=== PATIENT | male | born 1935 | race Caucasian/White ===

== ENCOUNTER 2016-05-27 07:00 | Inpatient (IN) | payer MEDICARE, OTHER ==
[~2016-05-27] VITALS: Ht 195.6 cm; Wt 69.4 kg
[~2016-05-27 07:00] MED LIST: ATORVASTATIN CA10 MG PO; CEPHALEXIN500 MG PO; FERROUS SULFAT325 M1 PO; FLOMAX0.4 MG PO; LOVENOX SUBQ; LOVENOX10 M1 SUBQ; NIACIN100 MG PO; NORCO 10-325 T1 EACH PO
[2016-06-03] MEDS ORDERED: FOSAMAX70 MG ORAL (16:24)
[2016-06-03] MEDS ORDERED: METOPROLOL TART25 MG ORAL (16:24)
[2016-06-03] MEDS ORDERED: XARELTO10 MG ORAL (16:24)
[2016-06-03] MEDS ORDERED: PREDNISONE10 MG ORAL (16:24)
[2016-06-04] VITALS (12 sets, daily range): BP systolic 103–138; BP diastolic 49–77
[2016-06-04] MEDS ORDERED: Bacitracin 50000 Units Vial ONE (10:28)
[2016-06-04] MEDS ORDERED: Morphine Sulfate PF 10 ML ONE (10:31)
[2016-06-04] MEDS ORDERED: Ropivacaine 5mg/ml Vial 20ml INJ ONE (10:31)
[2016-06-04] MEDS ORDERED: Bupivacaine 0.5% Inj 30 ml vial INJ ONE (10:31)
--- NOTE | 2016-06-04 11:03 | Anethesia Preoperative Eval ---
Anesthesia Pre-op PMH/ROS General Date of Evaluation: Jun 04, 2016 Anesthesiologist: Nica ASA Score: ASA 3 Mallampati Score Class I : Soft palate, uvula, fauces, pillars visible Class II: Soft palate, uvula, fauces visible Class III: Soft palate, base of uvula visible Class IV: Only hard plate visible Mallampati Classification: Class II Surgeon: Dee Dee Diagnosis: L Knee Pain Surgical Procedure: L TKR Family History: no anesthesia problems Allergies: Coded Allergies: VANCOMYCIN (Verified Allergy, Mild, 06/04/16) AJAY REACTION Medications: see eMAR Past Medical History Cardiovascular: Reports: HTN, arrhythmia - AFib, other - HL Gastrointestinal/Genitourinary: Reports: other - Prostate CA HEENT: Reports: cataract (L), cataract (R) Hematology/Immune: Reports: DVT, anemia Musculoskeletal/Integumentary: Reports: other - Polymyalgia Rheumatica PSxH Narrative: L IH, R TKR, Fredis Cat ext with IOL Anesthesia Pre-op Phys. Exam Physician Exam Last Vital Signs Date Time Temp Pulse Resp B/P Pulse Ox O2 Delivery O2 Flow Rate FiO2 06/04/16 10:19 98.5 80 16 138/77 99 Room Air Constitutional: NAD Neurologic: CN 2-12 intact Cardiovascular: RRR Respiratory: CTA Gastrointestinal: S/NT/ND Airway Exam Mallampati Score: Class II MO: limited ROM: limited Teeth: intact Anesthesia Pre-op A/P Risk Assessment & Plan Assessment: ASA 3 Pre-Antibiotics Dru Grams Ancef IV Given Within 1 Hr of Incision: Yes Time Given: 11:51 Zach Yousif MD Jun 04, 2016 11:03
[2016-06-04] MEDS ORDERED: NS Irrig 1000ml IRRIG ONE (11:15)
[2016-06-04] MEDS ORDERED: NS Irrig 2000ml IRRIG ONE (11:15)
--- NOTE | 2016-06-04 11:19 | Pre-Procedure Note/Attestation ---
Pre-Procedure Note/Attestation Complete Prior to Procedure Planned Procedure: left Procedure Narrative: left knee replacement Indications for Procedure Pre-Operative Diagnosis: left knee OA Attestation I attest that I discussed the nature of the procedure; its benefits; risks and complications; and alternatives (and the risks and benefits of such alternatives ), prior to the procedure, with the patient (or the patient's legal telephone services sales representative). I attest that, if there was a reasonable possibility of needing a blood transfusion, the patient (or the patient's legal telephone services sales representative) was given the [facility] standardized written summary, pursuant to the [place] Blood Safety Act ([place] Health and Safety Code # 1645, as amended). I attest that I re-evaluated the patient just prior to the surgery and that there has been no change in the patient's H&P, except as documented below: KELLI LEMONS Jun 04, 2016 11:19
--- NOTE | 2016-06-04 11:20 | Brief Operative Note ---
Immediate Post Operative Note Operative Note Pre-op Diagnosis: left knee OA Procedure: left knee replacement Post-op Diagnosis: left knee oa Post-op Diagnosis: same as pre-op Surgeon: jorge Anesthesia: general Complications: yes Condition: stable Implant(s) used?: Yes KELLI LEMONS Jun 04, 2016 11:20
[2016-06-04] MEDS ORDERED: Norco 7.5mg/325mg tab ORAL PRN (11:30)
[2016-06-04] MEDS ORDERED: Morphine Sulfate 2mg/ml Inj IVP PRN (11:30)
--- NOTE | 2016-06-04 11:45 | General Progress Note ---
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) Dx of Polymyalgia rheumatica (ICD-725) Dx of Knee pain, left (ICD-719.46) Plan post operative care post operative care resume Xarelto in am resume home meds follow up clinically Subjective Allergies: Coded Allergies: VANCOMYCIN (Verified Allergy, Mild, 06/04/16) AJAY REACTION Subjective asked to follow up on post operative care and management Objective Last 24 Hour Vital Signs Date Time Temp Pulse Resp B/P Pulse Ox O2 Delivery O2 Flow Rate FiO2 06/04/16 10:19 98.5 80 16 138/77 99 Room Air Height (Feet): 6 Height (Inches): 5.00 Weight (Pounds): 153 Objective WDWN NAD clear breath sounds bilaterally without rhonchi or wheeze S1S2 iRRR without MRG NABS nontender no HSM no CCE nonfocal JOHNATHON RAMIREZ Jun 04, 2016 11:45
[2016-06-04] MEDS ORDERED: TOBRAMYCIN 1.2 GM TOPIC ONE (12:45)
[2016-06-04] MEDS ORDERED: Propofol 10mg/ml 20ml IV ONE (12:59)
--- NOTE | 2016-06-04 13:42 | Immediate Post-Op Evaluation ---
Immediate Post-Op Evalulation Immediate Post-Op Evalulation Procedure: L TKR Date of Evaluation: Jun 04, 2016 Time of Evaluation: 14:02 IV Fluids: 1200 LR Blood Products: 0 Estimated Blood Loss: 50 Urinary Output: 100 Blood Pressure Systolic: 104 Blood Pressure Diastolic: 49 Pulse Rate: 62 Respiratory Rate: 16 O2 Sat by Pulse Oximetry: 100 Pain Score (1-10): 0 Nausea: No Vomiting: No Complications 0 Patient Status: awake, reacts, patent, none Hydration Status: adequate Dru Grams Ancef IV Given Within 1 Hr of Incision: Yes Time Given: 11:51 Zach Yousif MD Jun 04, 2016 13:42
--- NOTE | 2016-06-04 13:52 | 48 Hour Post Anesthesia Eval ---
Post Anesthesia Evaluation Procedure: L TKR Date of Evaluation: Jun 04, 2016 Time of Evaluation: 16:13 Blood Pressure Systolic: 133 0: 67 Pulse Rate: 67 Respiratory Rate: 16 Temperature (Fahrenheit): 97 O2 Sat by Pulse Oximetry: 99 Airway: patent Nausea: No Vomiting: No Pain Intensity: 0 Hydration Status: adequate Cardiopulmonary Status: Stable Mental Status/LOC: patient returned to baseline Follow-up Care/Observations: 0 Post-Anesthesia Complications: 0 Follow-up care needed: N/A Zach Yousif MD Jun 04, 2016 13:52
[2016-06-04 14:49] LABS: MEAN CORPUSCULAR HEMOGLOBIN 36.9 PG (27.0-31.0); MEAN CORPUSCULAR VOLUME 112 FL (80-99); MEAN PLATELET VOLUME 5.1 FL (6.5-10.1); PLATELET COUNT 265 K/UL (150-450); RED BLOOD COUNT 2.28 M/UL (4.70-6.10); RED CELL DISTRIBUTION WIDTH 12.2 % (11.6-14.8); WHITE BLOOD COUNT 13.8 K/UL (4.8-10.8)
[2016-06-04 14:59] LABS: INR 1.1 (0.9-1.1); PROTHROMBIN TIME 10.8 SEC (9.30-11.50)
--- NOTE | 2016-06-04 16:30 | Diagnostic Imaging Report ---
Indications: Postoperative Technique: Two views of the left knee Comparison:None Findings: Two postoperative views of the left knee demonstrate total knee arthroplasty, good anatomic alignment of the prosthesis. There is an external brace. There is postsurgical soft tissue air. Overlying skin chacha. Impression: Postoperative left knee, no unusual features.
[2016-06-04 17:57] LABS: ANISOCYTOSIS 1+; BAND NEUTROPHILS % (MANUAL) 0 % (0-8); BASOPHILS % (MANUAL) 0 % (0-2); EOSINOPHILS % (MANUAL) 0 % (0-3); LYMPHOCYTES % (MANUAL) 1 % (20-45); NEUTROPHILS % (MANUAL) 99 % (45-75); PLATELET ESTIMATE ADEQUATE; POLYCHROMASIA 1+; TOTAL CELLS COUNTED 100
[2016-06-04 17:58] LABS: MACROCYTES 2+; PLATELET MORPHOLOGY NORMAL
[2016-06-04] MEDS: D5 1/2NS w/KCl 20mEq 1,000 ML IV SCH (19:22)
[2016-06-04] MEDS ORDERED: Xarelto 10mg tab ORAL SCH (21:00)
[2016-06-05] VITALS: BP 110/56
[2016-06-05] MEDS: D5 1/2NS w/KCl 20mEq 1,000 ML IV SCH ×2 (03:30→06:00)
[2016-06-05 04:00] VITALS: BP 98/53
[2016-06-05 08:09] LABS: MEAN CORPUSCULAR HEMOGLOBIN 39.8 PG (27.0-31.0); MEAN CORPUSCULAR HGB CONC 34.1 G/DL (32.0-36.0); MEAN CORPUSCULAR VOLUME 117 FL (80-99); MEAN PLATELET VOLUME 6.3 FL (6.5-10.1); PLATELET COUNT 220 K/UL (150-450); RED BLOOD COUNT 2.02 M/UL (4.70-6.10); RED CELL DISTRIBUTION WIDTH 11.9 % (11.6-14.8)
[2016-06-05 08:18] LABS: INR 1.1 (0.9-1.1); PROTHROMBIN TIME 11.3 SEC (9.30-11.50)
[2016-06-05 08:34] VITALS: BP 110/68
[2016-06-05] MEDS: PredniSONE 5mg tab ORAL SCH (08:40)
[2016-06-05] MEDS: Morphine Sulfate 4mg/ml Inj IVP PRN ×3 (08:42→21:33)
[2016-06-05] MEDS ORDERED: Xarelto 10mg tab ORAL SCH ×2 (09:00→16:30)
[2016-06-05] MEDS ORDERED: Enoxaparin 40mg Inj SUBQ SCH (09:00)
[2016-06-05 10:29] LABS: BAND NEUTROPHILS % (MANUAL) 0 % (0-8); BASOPHILS % (MANUAL) 0 % (0-2); EOSINOPHILS % (MANUAL) 0 % (0-3); HYPOCHROMASIA 1+; LYMPHOCYTES % (MANUAL) 4 % (20-45); MACROCYTES 1+; NEUTROPHILS % (MANUAL) 90 % (45-75); PLATELET ESTIMATE ADEQUATE; PLATELET MORPHOLOGY NORMAL; TOTAL CELLS COUNTED 100
[2016-06-05 12:00] VITALS: BP 103/53
[2016-06-05 16:00] VITALS: BP 110/53
--- NOTE | 2016-06-05 17:10 | General Progress Note ---
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) Dx of Polymyalgia rheumatica (ICD-725) Dx of Knee pain, left (ICD-719.46) Dx of Leukocytosis Plan post operative care post operative care resume Xarelto in am resume home meds recheck CBC in am follow up clinically Subjective Allergies: Coded Allergies: VANCOMYCIN (Verified Allergy, Mild, 06/04/16) AJAY REACTION Subjective leukocytosis noted nontoxic Objective Last 24 Hour Vital Signs Date Time Temp Pulse Resp B/P Pulse Ox O2 Delivery O2 Flow Rate FiO2 06/05/16 16:00 98.2 71 18 110/53 94 Room Air 06/05/16 15:07 97.0 06/05/16 12:00 97.0 66 20 103/53 95 Nasal Cannula 3.0 06/05/16 08:40 78 110/68 06/05/16 08:34 97.0 78 20 110/68 95 Nasal Cannula 3.0 06/05/16 08:00 72 06/05/16 04:00 97.0 62 20 98/53 99 06/05/16 04:00 58 06/05/16 00:00 98.0 66 20 110/56 97 Room Air 06/05/16 00:00 62 06/04/16 20:00 97.2 63 18 103/57 Nasal Cannula 2.0 99 06/04/16 19:56 72 Intake and Output 06/04/16 06/05/16 19:00 07:00 Intake Total 1400 ml 1150 ml Output Total 300 ml 700 ml Balance 1100 ml 450 ml IV Total 1400 ml 1150 ml Output Urine Total 250 ml 700 ml Estimated Blood Loss 50 ml # Bowel Movements 1 Laboratory Tests 06/05/16 06:50: White Blood Count 19.0H, Red Blood Count 2.02L, Hemoglobin 8.0L, Hematocrit 23.6L, Mean Corpuscular Volume 117H, Mean Corpuscular Hemoglobin 39.8H, Mean Corpuscular Hemoglobin Concent 34.1, Red Cell Distribution Width 11.9, Platelet Count 220, Mean Platelet Volume 6.3L, Neutrophils (%) (Auto) , Lymphocytes (%) ( Auto) , Monocytes (%) (Auto) , Eosinophils (%) (Auto) , Basophils (%) (Auto) , Differential Total Cells Counted 100, Neutrophils % (Manual) 90H, Lymphocytes % (Manual) 4L, Monocytes % (Manual) 6, Eosinophils % (Manual) 0, Basophils % ( Manual) 0, Band Neutrophils 0, Platelet Estimate Adequate, Platelet Morphology Normal, Hypochromasia 1+, Macrocytosis 1+, Prothrombin Time 11.3, Prothromb Time International Ratio 1.1 Height (Feet): 6 Height (Inches): 5.00 Weight (Pounds): 153 Objective WDWN NAD clear breath sounds bilaterally without rhonchi or wheeze S1S2 iRRR without MRG NABS nontender no HSM no CCE; reduced ROM nonfocal JOHNATHON RAMIREZ Jun 05, 2016 17:10
[2016-06-05] MEDS: Morphine Sulfate 2mg/ml Inj IVP PRN (19:29)
[2016-06-05 20:00] VITALS: BP 107/45
[2016-06-06] MEDS: D5 1/2NS w/KCl 20mEq 1,000 ML IV SCH ×3 (00:01→19:16)
[2016-06-06 00:40] VITALS: BP 119/69
[2016-06-06 04:00] VITALS: BP 112/70
[2016-06-06 06:53] LABS: MEAN CORPUSCULAR HEMOGLOBIN 38.6 PG (27.0-31.0); MEAN CORPUSCULAR HGB CONC 33.6 G/DL (32.0-36.0); MEAN CORPUSCULAR VOLUME 115 FL (80-99); MEAN PLATELET VOLUME 5.8 FL (6.5-10.1); PLATELET COUNT 226 K/UL (150-450); RED BLOOD COUNT 2.24 M/UL (4.70-6.10); RED CELL DISTRIBUTION WIDTH 11.8 % (11.6-14.8); WHITE BLOOD COUNT 21.6 K/UL (4.8-10.8)
[2016-06-06 07:18] LABS: INR 1.1 (0.9-1.1); PROTHROMBIN TIME 11.2 SEC (9.30-11.50)
--- NOTE | 2016-06-06 08:27 | General Progress Note ---
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 prednisone related Plan post operative care post operative care resume Xarelto in am resume home meds recheck CBC in am obtain cultures and chest XR ID evaluation follow up clinically Subjective Allergies: Coded Allergies: VANCOMYCIN (Verified Allergy, Mild, 06/04/16) AJAY REACTION Subjective leukocytosis noted- worse nontoxic appearing Objective Last 24 Hour Vital Signs Date Time Temp Pulse Resp B/P Pulse Ox O2 Delivery O2 Flow Rate FiO2 06/06/16 04:00 98.0 70 20 112/70 70 Room Air 06/06/16 04:00 78 06/06/16 00:40 98.0 69 20 119/69 100 Room Air 06/06/16 00:00 72 06/05/16 20:00 96.8 66 18 107/45 99 Room Air 06/05/16 20:00 74 06/05/16 16:00 98.2 71 18 110/53 94 Room Air 06/05/16 16:00 70 06/05/16 15:07 97.0 06/05/16 12:00 97.0 66 20 103/53 95 Nasal Cannula 3.0 06/05/16 08:40 78 110/68 06/05/16 08:34 97.0 78 20 110/68 95 Nasal Cannula 3.0 Intake and Output 06/05/16 06/06/16 19:00 07:00 Intake Total 1140 ml 550 ml Output Total 300 ml 1600 ml Balance 840 ml -1050 ml Intake Oral 240 ml IV Total 900 ml 550 ml Output Urine Total 300 ml 1600 ml Laboratory Tests 06/06/16 06:10: White Blood Count 21.6H, Red Blood Count 2.24L, Hemoglobin 8.6L, Hematocrit 25.8L, Mean Corpuscular Volume 115H, Mean Corpuscular Hemoglobin 38.6H, Mean Corpuscular Hemoglobin Concent 33.6, Red Cell Distribution Width 11.8, Platelet Count 226, Mean Platelet Volume 5.8L, Neutrophils (%) (Auto) , Lymphocytes (%) ( Auto) , Monocytes (%) (Auto) , Eosinophils (%) (Auto) , Basophils (%) (Auto) , Neutrophils % (Manual) [Pending], Lymphocytes % (Manual) [Pending], Platelet Estimate [Pending], Platelet Morphology [Pending], Prothrombin Time 11.2, Prothromb Time International Ratio 1.1 Height (Feet): 6 Height (Inches): 5.00 Weight (Pounds): 153 Objective WDWN NAD clear breath sounds bilaterally without rhonchi or wheeze S1S2 iRRR without MRG NABS nontender no HSM no CCE; reduced ROM nonfocal JOHNATHON RAMIREZ Jun 06, 2016 08:27
[2016-06-06 08:46] VITALS: BP 126/64
[2016-06-06] MEDS: PredniSONE 5mg tab ORAL SCH (10:02)
[2016-06-06] MEDS: Morphine Sulfate 2mg/ml Inj IVP PRN (10:04)
[2016-06-06 12:00] VITALS: BP 124/56
[2016-06-06] MEDS ORDERED: CEFTAROLINE IVPB SCH (12:00)
[2016-06-06] MEDS ORDERED: NS IVPB SCH (12:00)
[2016-06-06 12:12] LABS: BAND NEUTROPHILS % (MANUAL) 0 % (0-8); BASOPHILS % (MANUAL) 0 % (0-2); EOSINOPHILS % (MANUAL) 1 % (0-3); LYMPHOCYTES % (MANUAL) 12 % (20-45); NEUTROPHILS % (MANUAL) 86 % (45-75); PLATELET ESTIMATE ADEQUATE; PLATELET MORPHOLOGY NORMAL; TOTAL CELLS COUNTED 100
[2016-06-06 12:13] LABS: MACROCYTES 1+
[2016-06-06] MEDS ORDERED: 1/2 NS 1000ml IV ONE (15:14)
[2016-06-06] MEDS ORDERED: Tubing IV Secondary IV ONE (15:14)
[2016-06-06 16:00] VITALS: BP 120/52
--- NOTE | 2016-06-06 16:08 | Consultation ---
DATE OF CONSULTATION: 06/06/2016 INFECTIOUS DISEASE CONSULTATION REFERRING PHYSICIAN: Richard Cabrales M.D. REASON FOR CONSULTATION: Leukocytosis. HISTORY OF PRESENTING ILLNESS: This is a very pleasant 80-year-old gentleman with history of osteoarthritis as well as polymyalgia rheumatica, who has had increasing left knee pain. He underwent left knee arthroplasty and due to leukocytosis and Infectious Diseases consultation has been obtained for antibiotics. PAST MEDICAL HISTORY: 1. History of DVT status post IVC filter placement. 2. Polymyalgia rheumatica. 3. Left knee osteoarthritis. MEDICATIONS: As an inpatient, he is on Fosamax, Xarelto, Toprol, prednisone, morphine and [place]. ALLERGIES: She is allergic to vancomycin, which produces redness. SOCIAL HISTORY: He does not smoke, drink, or use drugs. FAMILY HISTORY: Noncontributory. REVIEW OF SYSTEMS: Respiratory: No fever, chills, cough, shortness of breath, or chest pain. Cardiac: No chest pain. No palpitations. No dizziness. No syncope. Gastrointestinal: No nausea. No vomiting. No abdominal pain or diarrhea. Musculoskeletal: He complains of left knee pain. PHYSICAL EXAMINATION: VITAL SIGNS: Temperature of 97.7 degrees, T-max of 98.2 degrees, pulse of 92, respiratory of 18, blood pressure 126/64 and O2 saturation of 99%. HEENT: Pupils equally reactive to light and accommodation. Mouth appears clean without thrush. NECK: Supple. No adenopathy. No JVD. CARDIOVASCULAR: Regular rate and rhythm. No murmurs. LUNGS: Clear to auscultation bilaterally. No crackles. No wheezes. ABDOMEN: Soft and nontender. No organomegaly. EXTREMITIES: No cyanosis, no clubbing, and no edema. Left knee is in bandages. LABORATORY AND DIAGNOSTIC DATA: White count 21.6, hemoglobin 8.6, hematocrit 25.8, MCV 115 and platelet count of 226,000. No cultures noted. On 06/04/2016 knee x-ray showing postoperative left knee. ASSESSMENT: 1. This is an 80-year-old gentleman with history of osteoarthritis, polymyalgia rheumatica and deep vein thrombosis status post inferior vena cava filter placement, who came in and underwent left knee arthroplasty. He had some postoperative leukocytosis. We would like to rule out sepsis or urinary tract infection as a possibility. We would also like to rule out pneumonia as a possibility. 2. Leukocytosis, could also be secondary to steroids. PLAN: 1. We will order blood cultures. 2. We will order urine cultures. 3. We will order a urinalysis. 4. We will order a chest x-ray to rule out pneumonia. 5. We will start the patient on ceftaroline. 6. We will follow up cultures. I would like to thank, Dr. Cabrales, for this consultation. Scarlett Hayward M.D. DR: MEREDITH JOB#: [id number] CC: Richard Cabrales M.D.
[2016-06-06] MEDS ORDERED: Morphine Sulfate 4mg/ml Inj IVP PRN (17:30)
[2016-06-06] MEDS ORDERED: Morphine Sulfate 2mg/ml Inj IVP PRN ×2 (17:30→19:30)
[2016-06-06] MEDS ORDERED: Norco 7.5mg/325mg tab ORAL PRN (17:30)
[2016-06-06 20:00] VITALS: BP 112/50
[2016-06-06] MEDS: Xarelto 10mg tab ORAL SCH (22:30)
[2016-06-07] VITALS (8 sets, daily range): BP systolic 94–119; BP diastolic 45–66
[2016-06-07] MEDS: D5 1/2NS w/KCl 20mEq 1,000 ML IV SCH ×3 (02:53→23:31)
[2016-06-07 06:50] LABS: MEAN CORPUSCULAR HEMOGLOBIN 38.1 PG (27.0-31.0); MEAN CORPUSCULAR HGB CONC 33.4 G/DL (32.0-36.0); MEAN CORPUSCULAR VOLUME 114 FL (80-99); MEAN PLATELET VOLUME 6.1 FL (6.5-10.1); PLATELET COUNT 215 K/UL (150-450); RED BLOOD COUNT 1.96 M/UL (4.70-6.10); WHITE BLOOD COUNT 15.4 K/UL (4.8-10.8)
[2016-06-07 07:02] LABS: INR 1.2 (0.9-1.1); PROTHROMBIN TIME 11.9 SEC (9.30-11.50)
--- NOTE | 2016-06-07 08:35 | General Progress Note ---
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 prednisone related Dx of anemia post operative Plan post operative care transfuse post operative care resume Xarelto in am resume home meds recheck CBC in am obtain cultures and chest XR ID evaluation follow up clinically ?dc in am Subjective Allergies: Coded Allergies: VANCOMYCIN (Verified Allergy, Mild, 06/04/16) AJAY REACTION Subjective leukocytosis noted- improved nontoxic appearing Objective Last 24 Hour Vital Signs Date Time Temp Pulse Resp B/P Pulse Ox O2 Delivery O2 Flow Rate FiO2 06/07/16 04:30 97.3 73 18 113/59 96 Room Air 06/07/16 00:00 97.0 69 18 94/45 96 Room Air 06/06/16 20:00 97.7 80 18 112/50 95 Room Air 06/06/16 16:00 96.4 79 13 120/52 98 Room Air 06/06/16 14:00 97.7 06/06/16 12:00 97.9 96 18 124/56 98 Nasal Cannula 2.0 06/06/16 12:00 72 06/06/16 10:34 97.7 06/06/16 10:02 92 126/64 06/06/16 08:46 97.7 92 18 126/64 99 Nasal Cannula 2.0 Intake and Output 06/06/16 06/07/16 19:00 07:00 Intake Total 1110 ml 1120 ml Output Total 550 ml 1775 ml Balance 560 ml -655 ml Intake Oral 480 ml 320 ml IV Total 630 ml 800 ml Output Urine Total 550 ml 1775 ml # Voids 5 Laboratory Tests 06/07/16 06:10: White Blood Count 15.4H, Red Blood Count 1.96L, Hemoglobin 7.4L, Hematocrit 22.3L, Mean Corpuscular Volume 114H, Mean Corpuscular Hemoglobin 38.1H, Mean Corpuscular Hemoglobin Concent 33.4, Red Cell Distribution Width 12.0, Platelet Count 215, Mean Platelet Volume 6.1L, Neutrophils (%) (Auto) , Lymphocytes (%) ( Auto) , Monocytes (%) (Auto) , Eosinophils (%) (Auto) , Basophils (%) (Auto) , Neutrophils % (Manual) [Pending], Lymphocytes % (Manual) [Pending], Platelet Estimate [Pending], Platelet Morphology [Pending], Prothrombin Time 11.9H, Prothromb Time International Ratio 1.2H Height (Feet): 6 Height (Inches): 5.00 Weight (Pounds): 153 Objective WDWN NAD clear breath sounds bilaterally without rhonchi or wheeze S1S2 iRRR without MRG NABS nontender no HSM no CCE; reduced ROM nonfocal JOHNATHON RAMIREZ Jun 07, 2016 08:35
--- NOTE | 2016-06-07 08:48 | General Progress Note ---
Progress Note Progress Note status [post knee xray perfect neurovascular intact ambulating Issue with leuckocytosis needs workup per avani Hgb 7.4 may need blood will discuss with KELLI Arboleda Jun 07, 2016 08:48
[2016-06-07] MEDS: PredniSONE 5mg tab ORAL SCH (08:49)
[2016-06-07] MEDS ORDERED: Ketorolac 30mg Inj IV ONE (09:30)
[2016-06-07 09:34] LABS: BAND NEUTROPHILS % (MANUAL) 0 % (0-8); BASOPHILS % (MANUAL) 0 % (0-2); EOSINOPHILS % (MANUAL) 0 % (0-3); HYPOCHROMASIA 1+; LYMPHOCYTES % (MANUAL) 11 % (20-45); NEUTROPHILS % (MANUAL) 81 % (45-75); PLATELET ESTIMATE ADEQUATE; PLATELET MORPHOLOGY NORMAL; TOTAL CELLS COUNTED 100
[2016-06-07] MEDS: NS IVPB SCH ×5 (12:00→23:31)
[2016-06-07] MEDS: CEFTAROLINE IVPB SCH ×5 (12:00→23:31)
--- NOTE | 2016-06-07 14:04 | Infectious Diseases Prog Note ---
Assessment/Plan Assessment/Plan A: Leukocytosis improving Anemia Left knee OA s/p L knee replacement Polymyalgia rheumatica P: Continue Teflaro Will f/u cultures Subjective ROS Limited/Unobtainable: No Cardiovascular: Reports: no symptoms Gastrointestinal/Abdominal: Reports: no symptoms Genitourinary: Reports: no symptoms Skin: Reports: no symptoms Allergies: Coded Allergies: VANCOMYCIN (Verified Allergy, Mild, 06/04/16) AJAY REACTION Objective Vital Signs Last 24 Hour Vital Signs Date Time Temp Pulse Resp B/P Pulse Ox O2 Delivery O2 Flow Rate FiO2 06/07/16 12:00 97.9 71 18 109/61 96 Room Air 06/07/16 11:30 97.2 74 18 106/56 97 Room Air 06/07/16 09:59 97.3 06/07/16 08:50 84 117/46 06/07/16 08:00 97.7 84 18 117/46 98 Room Air 06/07/16 04:30 97.3 73 18 113/59 96 Room Air 06/07/16 00:00 97.0 69 18 94/45 96 Room Air 06/06/16 20:00 97.7 80 18 112/50 95 Room Air 06/06/16 16:00 96.4 79 13 120/52 98 Room Air Height (Feet): 6 Height (Inches): 5.00 Weight (Pounds): 153 General Appearance: no acute distress Respiratory/Chest: lungs clear Cardiovascular: normal rate, regular rhythm Abdomen: soft, non tender Extremities: no edema, other - left knee dressing Neurologic/Psychiatric: alert, oriented x 3, responsive Musculoskeletal: other - R knee surical scar Laboratory Tests Test 06/07/16 06:10 White Blood Count 15.4 K/UL (4.8-10.8) H Red Blood Count 1.96 M/UL (4.70-6.10) L Hemoglobin 7.4 G/DL (14.2-18.0) L Hematocrit 22.3 % (42.0-52.0) L Mean Corpuscular Volume 114 FL (80-99) H Mean Corpuscular Hemoglobin 38.1 PG (27.0-31.0) H Mean Corpuscular Hemoglobin Concent 33.4 G/DL (32.0-36.0) Red Cell Distribution Width 12.0 % (11.6-14.8) Platelet Count 215 K/UL (150-450) Mean Platelet Volume 6.1 FL (6.5-10.1) L Neutrophils (%) (Auto) % (45.0-75.0) Lymphocytes (%) (Auto) % (20.0-45.0) Monocytes (%) (Auto) % (1.0-10.0) Eosinophils (%) (Auto) % (0.0-3.0) Basophils (%) (Auto) % (0.0-2.0) Differential Total Cells Counted 100 Neutrophils % (Manual) 81 % (45-75) H Lymphocytes % (Manual) 11 % (20-45) L Monocytes % (Manual) 8 % (1-10) Eosinophils % (Manual) 0 % (0-3) Basophils % (Manual) 0 % (0-2) Band Neutrophils 0 % (0-8) Platelet Estimate Adequate Platelet Morphology Normal Hypochromasia 1+ Prothrombin Time 11.9 SEC (9.30-11.50) H Prothromb Time International Ratio 1.2 (0.9-1.1) H Current Medications Medications (Trade) Dose Ordered Sig/Maryana Route PRN Reason Start Time Stop Time Status Last Admin Dose Admin Acetaminophen/ Hydrocodone Bitart ([place] 7.5/325) 1 ea Q4H PRN ORAL Mild Pain (Pain Scale 1-3) 06/06/16 17:30 06/13/16 17:29 Alendronate Sodium (Fosamax) 70 mg Sa@0600 ORAL 06/07/16 06:00 07/07/16 05:59 06/07/16 06:08 Ceftaroline Fosamil 600 mg/ Sodium Chloride 50 ml @ 50 mls/hr Q12H IVPB 06/07/16 00:00 06/14/16 00:00 06/07/16 00:00 Dextrose/ Electrolytes (D5 0.45%NS W/ KCl 20mEq) 1,000 ml @ 100 mls/hr Q10H IV 06/06/16 18:00 07/06/16 17:59 06/07/16 02:53 Metoprolol Succinate (Toprol XL) 25 mg DAILY ORAL 06/07/16 09:00 07/07/16 08:59 Morphine Sulfate (Morphine Sulfate) 1 mg Q4H PRN IVP Mild Pain (Pain Scale 1-3) 06/06/16 19:30 06/13/16 19:29 Morphine Sulfate (Morphine Sulfate) 2 mg Q4H PRN IVP Moderate Pain (Pain Scale 4-6) 06/06/16 17:30 06/13/16 17:29 Morphine Sulfate (Morphine Sulfate) 4 mg Q4H PRN IVP Severe Pain (Pain Scale 7-10) 06/06/16 17:30 06/13/16 17:29 Prednisone (predniSONE) 10 mg DAILY ORAL 06/07/16 09:00 07/07/16 08:59 06/07/16 08:49 Rivaroxaban (Xarelto) 20 mg QPM ORAL 06/07/16 16:30 07/07/16 16:29 06/06/16 22:30 ANNA FRANKLIN Jun 07, 2016 14:04
[2016-06-07] MEDS: Xarelto 10mg tab ORAL SCH (16:28)
[2016-06-07] MEDS ORDERED: Zolpidem 5mg tab ORAL PRN (20:15)
[2016-06-08] VITALS: BP_SYST 117; BP_SYST 127; BP_DIAS 63; BP_DIAS 66
[2016-06-08 04:00] VITALS: BP 125/63
[2016-06-08 07:50] LABS: BASOPHILS % (AUTO) 0.4 % (0.0-2.0); EOSINOPHILS % (AUTO) 0.7 % (0.0-3.0); LYMPHOCYTES % (AUTO) 8.4 % (20.0-45.0); MEAN CORPUSCULAR HEMOGLOBIN 35.8 PG (27.0-31.0); MEAN CORPUSCULAR HGB CONC 33.9 G/DL (32.0-36.0); MEAN CORPUSCULAR VOLUME 106 FL (80-99); MEAN PLATELET VOLUME 5.9 FL (6.5-10.1); MONOCYTES % (AUTO) 5.6 % (1.0-10.0); NEUTROPHILS % (AUTO) 84.9 % (45.0-75.0); PLATELET COUNT 215 K/UL (150-450); RED BLOOD COUNT 2.65 M/UL (4.70-6.10); WHITE BLOOD COUNT 15.1 K/UL (4.8-10.8)
[2016-06-08 08:08] LABS: INR 1.1 (0.9-1.1); PROTHROMBIN TIME 11.4 SEC (9.30-11.50)
[2016-06-08 08:14] VITALS: BP 131/71
[2016-06-08 08:39] VITALS: BP 131/71
[2016-06-08] MEDS: PredniSONE 5mg tab ORAL SCH (08:39)
[2016-06-08] MEDS: D5 1/2NS w/KCl 20mEq 1,000 ML IV SCH (10:00)
--- NOTE | 2016-06-08 10:29 | Diagnostic Imaging Report ---
Indication: SOB Technique: One view of the chest Comparison: none Findings: There are bilateral small pleural effusions. There is generalized interstitial prominence. Uncertain as whether this is acute or on the basis of senescent change. There may be some hazy infiltrate in the right infrahilar region and left lung base. Impression: Suspect small bilateral pleural effusions Possible hazy bilateral basilar infiltrates. General mild interstitial prominence, acuity indeterminate. Correlate with clinical findings
--- NOTE | 2016-06-08 10:43 | General Progress Note ---
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 prednisone related Dx of anemia post operative Plan post operative care transfuse post operative care Xarelto daily resume home meds follow up cbc after dc ceftin on dc all findings negative ID evaluation follow up clinically dc with home health Subjective Allergies: Coded Allergies: VANCOMYCIN (Verified Allergy, Mild, 06/04/16) AJAY REACTION Subjective leukocytosis noted- improved nontoxic appearing Objective Last 24 Hour Vital Signs Date Time Temp Pulse Resp B/P Pulse Ox O2 Delivery O2 Flow Rate FiO2 06/08/16 08:39 83 131/71 06/08/16 08:14 96.3 83 20 131/71 96 Room Air 06/08/16 04:00 98.0 72 16 125/63 98 Room Air 06/08/16 00:00 97.9 74 16 127/63 95 Room Air 06/07/16 20:00 97.4 68 20 119/64 97 Room Air 06/07/16 16:12 97.0 65 20 119/65 97 Room Air 06/07/16 14:00 97.0 73 18 119/66 96 Room Air 06/07/16 12:00 97.9 71 18 109/61 96 Room Air 06/07/16 11:30 97.2 74 18 106/56 97 Room Air Intake and Output 06/07/16 06/08/16 19:00 07:00 Intake Total 1540 ml 1060 ml Output Total 350 ml Balance 1190 ml 1060 ml Intake Oral 940 ml 360 ml IV Total 350 ml 700 ml Blood Product 250 ml Output Urine Total 350 ml # Voids 6 4 # Bowel Movements 1 Laboratory Tests 06/08/16 05:30: White Blood Count 15.1H, Red Blood Count 2.65L, Hemoglobin 9.5L, Hematocrit 28.0L, Mean Corpuscular Volume 106H, Mean Corpuscular Hemoglobin 35.8H, Mean Corpuscular Hemoglobin Concent 33.9, Red Cell Distribution Width 18.0H, Platelet Count 215, Mean Platelet Volume 5.9L, Neutrophils (%) (Auto) 84.9H, Lymphocytes (%) (Auto) 8.4L, Monocytes (%) (Auto) 5.6, Eosinophils (%) (Auto) 0.7, Basophils (%) (Auto) 0.4, Prothrombin Time 11.4, Prothromb Time International Ratio 1.1 Height (Feet): 6 Height (Inches): 5.00 Weight (Pounds): 153 Objective WDWN NAD clear breath sounds bilaterally without rhonchi or wheeze S1S2 iRRR without MRG NABS nontender no HSM no CCE; reduced ROM nonfocal alert JOHNATHON RAMIREZ Jun 08, 2016 10:43
--- NOTE | 2016-06-08 10:54 | Infectious Diseases Prog Note ---
Assessment/Plan Assessment/Plan A: Pneumonia Leukocytosis improving Anemia Left knee OA s/p L knee replacement Polymyalgia rheumatica P: Agree with discharge with PO Ceftin Subjective ROS Limited/Unobtainable: No Constitutional: Reports: no symptoms Respiratory: Reports: no symptoms Cardiovascular: Reports: no symptoms Gastrointestinal/Abdominal: Reports: no symptoms Musculoskeletal: Reports: other - surgical site 09/08, pain Allergies: Coded Allergies: VANCOMYCIN (Verified Allergy, Mild, 06/04/16) AJAY REACTION Objective Vital Signs Last 24 Hour Vital Signs Date Time Temp Pulse Resp B/P Pulse Ox O2 Delivery O2 Flow Rate FiO2 06/08/16 08:39 83 131/71 06/08/16 08:14 96.3 83 20 131/71 96 Room Air 06/08/16 04:00 98.0 72 16 125/63 98 Room Air 06/08/16 00:00 97.9 74 16 127/63 95 Room Air 06/07/16 20:00 97.4 68 20 119/64 97 Room Air 06/07/16 16:12 97.0 65 20 119/65 97 Room Air 06/07/16 14:00 97.0 73 18 119/66 96 Room Air 06/07/16 12:00 97.9 71 18 109/61 96 Room Air 06/07/16 11:30 97.2 74 18 106/56 97 Room Air Height (Feet): 6 Height (Inches): 5.00 Weight (Pounds): 153 General Appearance: no acute distress HEENT: mucous membranes moist Respiratory/Chest: lungs clear Cardiovascular: normal rate Abdomen: soft, non tender Extremities: other - edema of left leg Skin: other - left knee dressing Microbiology Date/Time Source Procedure Growth Status 06/06/16 20:00 Blood Blood Culture - Preliminary NO GROWTH AFTER 24 HOURS Resulted 06/06/16 19:45 Blood Blood Culture - Preliminary NO GROWTH AFTER 24 HOURS Resulted 06/06/16 18:23 Urine,Clean Catch Urine Culture - Preliminary NO GROWTH AFTER 24 HOURS Resulted Laboratory Tests Test 06/08/16 05:30 White Blood Count 15.1 K/UL (4.8-10.8) H Red Blood Count 2.65 M/UL (4.70-6.10) L Hemoglobin 9.5 G/DL (14.2-18.0) L Hematocrit 28.0 % (42.0-52.0) L Mean Corpuscular Volume 106 FL (80-99) H Mean Corpuscular Hemoglobin 35.8 PG (27.0-31.0) H Mean Corpuscular Hemoglobin Concent 33.9 G/DL (32.0-36.0) Red Cell Distribution Width 18.0 % (11.6-14.8) H Platelet Count 215 K/UL (150-450) Mean Platelet Volume 5.9 FL (6.5-10.1) L Neutrophils (%) (Auto) 84.9 % (45.0-75.0) H Lymphocytes (%) (Auto) 8.4 % (20.0-45.0) L Monocytes (%) (Auto) 5.6 % (1.0-10.0) Eosinophils (%) (Auto) 0.7 % (0.0-3.0) Basophils (%) (Auto) 0.4 % (0.0-2.0) Prothrombin Time 11.4 SEC (9.30-11.50) Prothromb Time International Ratio 1.1 (0.9-1.1) Current Medications Medications (Trade) Dose Ordered Sig/Maryana Route PRN Reason Start Time Stop Time Status Last Admin Dose Admin Acetaminophen/ Hydrocodone Bitart ([place] 7.5/325) 1 ea Q4H PRN ORAL Mild Pain (Pain Scale 1-3) 06/06/16 17:30 06/13/16 17:29 06/08/16 05:39 Alendronate Sodium (Fosamax) 70 mg Sa@0600 ORAL 06/07/16 06:00 07/07/16 05:59 06/07/16 06:08 Ceftaroline Fosamil 600 mg/ Sodium Chloride 50 ml @ 50 mls/hr Q12H IVPB 06/07/16 00:00 06/14/16 00:00 06/07/16 23:31 Dextrose/ Electrolytes (D5 0.45%NS W/ KCl 20mEq) 1,000 ml @ 100 mls/hr Q10H IV 06/06/16 18:00 07/06/16 17:59 06/07/16 23:31 Metoprolol Succinate (Toprol XL) 25 mg DAILY ORAL 06/07/16 09:00 07/07/16 08:59 06/08/16 08:39 Morphine Sulfate (Morphine Sulfate) 1 mg Q4H PRN IVP Mild Pain (Pain Scale 1-3) 06/06/16 19:30 06/13/16 19:29 Morphine Sulfate (Morphine Sulfate) 2 mg Q4H PRN IVP Moderate Pain (Pain Scale 4-6) 06/06/16 17:30 06/13/16 17:29 Morphine Sulfate (Morphine Sulfate) 4 mg Q4H PRN IVP Severe Pain (Pain Scale 7-10) 06/06/16 17:30 06/13/16 17:29 Prednisone (predniSONE) 10 mg DAILY ORAL 06/07/16 09:00 07/07/16 08:59 06/08/16 08:39 Rivaroxaban (Xarelto) 20 mg QPM ORAL 06/07/16 16:30 07/07/16 16:29 06/07/16 16:28 Zolpidem Tartrate (Ambien) 5 mg HSPRN PRN ORAL Insomnia 06/07/16 20:15 07/07/16 20:14 06/07/16 23:31 ANNA FRANKLIN Jun 08, 2016 10:54
[2016-06-08] MEDS ORDERED: Tubing Blood Filter IV ONE (10:59)
[2016-06-08] MEDS ORDERED: D5 1/2NS 1000ml IV ONE (10:59)
[2016-06-08] MEDS ORDERED: Tubing IV Secondary IV ONE ×2 (10:59)
[2016-06-08] MEDS ORDERED: NS 275ml ONE (10:59)
[2016-06-08] MEDS ORDERED: CEFTIN500 MG ORAL (11:12)
[2016-06-08] MEDS: CEFTAROLINE IVPB SCH (12:00)
[2016-06-08] MEDS: NS IVPB SCH (12:00)
--- NOTE | 2016-06-09 14:17 | Discharge Summary ---
Discharge Summary Hospital Course Date of Admission Jun 04, 2016 at 09:33 Date of Discharge Jun 08, 2016 at 11:00 Admitting Diagnosis L knee osteoarthritis Reason for Hospitalization: elective surgery L TKR HPI Donell Menon , 80 year old male, was admitted on Jun 04, 2016 at 09:33 for Lt Knee Osteoarthritis and elective surgery Left total knee replacement Consultations internal medicine- dr Cabrales ID -dr Hayward Procedures s/p 06/04 Left TKR Hospital Course 80 y/old male with L knee osteoarthritis admitted for elective surgery - L TKA s/p L TKR 06/04 surgery followed ; neurovascular intact, ambulates pain management anticoagulation with Xarelto resumed ( hx of DVT as well as IVC filter) PT/OT fall precautions diet as tolerated bowel regimen home meds continued postop anemia, s/p 2 u PRBC, currently stable HH patient with leukocytosis postop ID consult requested CXR with small bilateral pleural effusions. Possible hazy bilateral basilar infiltrates. empiric abx , blood cx and urine cx negative, afebrile per ID home on Ceftin x 7 days dc home fup with PMD and ortho Discharge Medications Continued Medications: Alendronate Sodium* (Fosamax*) 70 Mg Tablet 70 MG ORAL ONCE A WEEK, TAB Cefuroxime Axetil* (Ceftin*) 500 Mg Tablet 500 MG ORAL EVERY 12 HOURS, #14 TAB Metoprolol Tartrate* (Metoprolol Tartrate*) 25 Mg Tablet 25 MG ORAL DAILY, TAB Prednisone* (Prednisone*) 10 Mg Tablet 10 MG ORAL DAILY, #10 TAB 0 Refills Rivaroxaban (Xarelto*) 10 Mg Tablet 10 MG ORAL DAILY, #30 TAB 0 Refills Discharge Condition Upon Discharge: improving, stable Discharge Disposition Patient was discharged to Home with Home Health(06) Discharge Diagnoses: (1) Osteoarthritis of left knee (2) S/P total knee arthroplasty (3) Total knee replacement status (4) PNA (pneumonia) (5) Postoperative anemia (6) Polymyalgia rheumatica (7) S/P IVC filter (8) History of DVT (deep vein thrombosis) Discharge Instructions Discharge Instructions Follow up with: PMD and ortho Call MD/Return to Hospital if: fever, cough, dyspnea, intractable pain , drainage at incision site Diet: cardiac 2 GM Na, low fat Activity: as tolerated Special Instructions I have been assigned to complete a D/C Summary on this account. I was not involved in the patient management For Surgical Patients Contact your physician for: bleeding, pain, tenderness, redness, swelling, yellowish discharge in the op. site Edwin ([facility] Wilson NP Jun 09, 2016 14:17
[2016-06-10 12:27] LABS: OTHERS PATHOLOGIST COMMENT
--- NOTE | 2016-06-11 02:27 | Operative Note - Dictated ---
NOTE: "POOR AUDIO QUALITY" PREOPERATIVE DIAGNOSES: 1. 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 2. Multiple issues with body. POSTOPERATIVE DIAGNOSES: 1. 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 2. Multiple issues with body. PROCEDURES: 1. Left total knee replacement with Persona [employer] knee trial femur left tibia 14 poly intact. 2. Modified secondary to difficulty due to extreme height and . 3. Posterior flexion contracture release. 4. Quadriceps plasty. SURGEON: Josias Funez M.D. SIZE TESTER: Delilah. BINDER FIXER: Souleymane. PREOPERATIVE NOTE: This is a pleasant gentleman, who has had multiple medical issues encompassing cardiac issues, need for prednisone who understands the risks of surgery being infection, bleeding, anesthetic risks, neurovascular damage, DVT, PE, and failure of the operation. The patient understands and wants to get this done. OPERATIVE ROOM NOTE: Under the benefit of endotracheal intubation and general anesthetics, the patient's knee was prepped and draped in appropriate manner. A midline incision was made, incised through medial retinaculum everting the patella, synovectomy was done. Posterior flexion contracture release was done by releasing after removing the menisci anterior cut, posterior cut, anterior chamfer and posterior chamfer cuts with 3 degrees of external rotation due to larger size, so I am going to continue with the , which is the largest size after taking 3 mm off the medial purpose. With respect to flexion extension gap blocks showed good flexion and ultimately good extension, full flexion, full mediolateral stability throughout . Then, I released the contracture, did a quadriceps plasty and then I irrigated the wound copiously, mixed with cement. Then, the . Excess cement was removed. I closed the retinaculum with #1-0 Vicryl, subcutaneous tissue with 2-0 Vicryl, and skin with chacha. The patient went to recovery room in stable condition. Modifier 22 secondary to extreme height and complication . The patient tolerated this well, no complications. Josias Funez M.D. DR: [place] JOB#: [id number] CC:
== END 2016-06-08 11:00 | disposition home health service (06) | DRG 469 ==
LOC: SDSOVERFLO 06-04 09:33 → 3E 06-04 16:02 → 2E 06-04 16:09 → 3E 06-06 16:54
DX: M17.12 Unilateral primary osteoarthritis, left knee (principal); J18.9 Pneumonia, unspecified organism; J90 Pleural effusion, not elsewhere classified; Z96.651 Presence of right artificial knee joint; M81.0 Age-related osteoporosis without current pathological fracture; D64.9 Anemia, unspecified; M35.3 Polymyalgia rheumatica; Z88.1 Allergy status to other antibiotic agents; D72.828 Other elevated white blood cell count; R94.31 Abnormal electrocardiogram [ECG] [EKG]; M24.562 Contracture, left knee; Z85.46 Personal history of malignant neoplasm of prostate; Z86.718 Personal history of other venous thrombosis and embolism; Z79.01 Long term (current) use of anticoagulants
CPT/HCPCS: 36415; 71010; 85007; 85025; 85610; 86850; 86900; 86901; 86920; 87040; 87081; 87086; 94003; 94150